=== PATIENT | male | born 1950 | race Caucasian/White ===

== ENCOUNTER 2019-11-12 05:59 | Day surgery (SDC) | payer MEDICARE, OTHER ==
[~2019-11-12 05:59] MED LIST: ACET500 PO; ACYC400 PO; ASPI325 PO; Norco 10-325 T1 EACH PO; VALA500 PO
[2019-11-12] MEDS ORDERED: ASPI325 PO (06:47)
--- NOTE | 2019-11-12 06:48 | NUR ---
History, Chart, Medications and Allergies reviewed before start of procedure. Patient confirms NPO status and agrees with scheduled surgery. Lungs clear T/O to Auscultation. Patient States Post-Procedure ride home has been arranged. Patient reports completing Chlorhexadine shower X2 prior to admission to hospital.
--- NOTE | 2019-11-12 07:25 | NUR ---
0721-HOME [facility] RESPIRATORY THERAPIST REPORT COMPLETED AT BEDSIDE WITH AIME FARFAN.
--- NOTE | 2019-11-12 07:25 | NUR ---
PATIENT UP TO BR FOR UNMEASURED VOID.
--- NOTE | 2019-11-12 10:25 | NUR ---
PT TOLERATED PO FLUIDS AND CRACKERS. PAIN MEDICATIONS GIVEN PO. SWALLOWED WITHOUT DIFFICULTY
--- NOTE | 2019-11-12 10:50 | NUR ---
Patient States Post-Procedure ride home has been arranged. IV'S DC'D INTACT.
--- NOTE | 2019-11-12 10:52 | NUR ---
Discharge instructions reviewed with patient. Patient verbalizes understanding. Copy given to patient to take home. Discharged via wheelchair to private car for ride home.
--- NOTE | 2019-11-16 07:40 | NUR ---
11/16/19 0740 Gemma Zavala VERIFICATIONS: EDIT CHART.
== END 2019-11-12 10:54 | disposition home or self-care (01) ==
LOC: ORSCMMR 05:59 → ORD 07:30 → ORSCMMR 10:54 → ORD 11-26 08:30
PROVIDERS: Surgery
PROC: 0YUA4JZ Supplement Bilateral Inguinal Region with Synthetic Substitute, Percutaneous Endoscopic Approach (ICD-10-PCS; principal; 2019-11-12 07:30)
PROC: 8E0W4CZ Robotic Assisted Procedure of Trunk Region, Percutaneous Endoscopic Approach (ICD-10-PCS; principal; 2019-11-12 07:30)
DX: K40.20 Bilateral inguinal hernia, without obstruction or gangrene, not specified as recurrent (principal); E78.5 Hyperlipidemia, unspecified
CPT/HCPCS: 49650; S2900; A9270-GY; C1781; J0690; J1100; J2250; J2370; J2405; J2704; J3010; J7120